=== PATIENT | female | born 1940 | race Caucasian/White ===

== ENCOUNTER 2022-03-18 18:54 | Emergency (ER) | payer SELFPAY ==
[~2022-03-18] VITALS: Ht 154.9 cm; Wt 60.3 kg
[2022-03-18 19:20] VITALS: BP 130/63
[2022-03-18 20:50] VITALS: BP 135/75
== END 2022-03-18 20:52 | disposition home or self-care (01) ==
LOC: MED 18:54
DX: K12.30 Oral mucositis (ulcerative), unspecified (principal); K06.8 Other specified disorders of gingiva and edentulous alveolar ridge; E11.9 Type 2 diabetes mellitus without complications; Z90.49 Acquired absence of other specified parts of digestive tract
CPT/HCPCS: 99281